=== PATIENT | male | born 1955 | race Caucasian/White ===

== ENCOUNTER 2018-10-12 11:48 | Inpatient (IN) | payer OTHER, MEDICAID ==
[~2018-10-12] VITALS: Ht 167.6 cm; Wt 86.8 kg
[2018-10-12 12:03] VITALS: BP_SYST 125
[2018-10-12] MEDS ORDERED: ALBUTEROL SULFATE 0.083% 2.5 MG/3 ML VIAL.NEB INH ONE (12:15)
[2018-10-12] MEDS ORDERED: LEVOFLOXACIN 500 MG/D5W 100 ML IV ONE ×2 (12:15→16:45)
[2018-10-12] MEDS ORDERED: ACETAMINOPHEN 500 MG TABLET PO ONE (12:45)
[2018-10-12 12:57] LABS: BASOPHILS # (AUTO) 0.2 K/uL (0.0-0.2); BASOPHILS % (AUTO) 0.7 % (0.0-2.0); EOSINOPHILS % (AUTO) 0.1 % (0.0-4.0); HEMATOCRIT 40.9 % (36-54); HEMOGLOBIN 13.2 g/dL (14.0-18.0); LYMPHOCYTES # (AUTO) 6.7 K/uL (1.0-5.5); LYMPHOCYTES % (AUTO) 27.5 % (20.5-51.5); MEAN CORPUSCULAR HEMOGLOBIN 30 pg (27-31); MEAN CORPUSCULAR HGB CONC 32 % (32-36); MEAN CORPUSCULAR VOLUME 92 fL (79.0-98.0); MONOCYTES % (AUTO) 12.5 % (1.7-9.3); NEUTROPHILS # (AUTO) 14.3 K/uL (1.8-7.7); NEUTROPHILS % (AUTO) 59.2 % (40.0-70.0); PLATELET COUNT (AUTO) 266 K/uL (130-430); RED BLOOD CELL COUNT(AUTO) 4.46 MIL/uL (4.2-6.2); RED CELL DISTRIBUTION WIDTH 16.3 % (9.0-15.0); WHITE BLOOD COUNT (AUTO) 24.2 K/uL (4.8-10.8)
[2018-10-12 13:07] LABS: PROTHROMBIN TIME 9.9 SECS (9.5-12.5)
[2018-10-12 13:08] LABS: CREATININE 2.66 mg/dL (0.55-1.30); POTASSIUM 4.1 mmol/L (3.5-5.1)
[2018-10-12 13:13] LABS: ALBUMIN 2.8 g/dL (3.4-4.8); TOTAL BILIRUBIN 0.5 mg/dL (0.0-1.0)
[2018-10-12] MEDS ORDERED: NACL 0.9% 1,000 ML IV ONE (13:30)
[2018-10-12] MEDS ORDERED: ASCO500T20 PO (14:24)
[2018-10-12] MEDS ORDERED: SCOP1PAT17 TD (14:24)
[2018-10-12] MEDS ORDERED: GABA-529 PO (14:24)
[2018-10-12] MEDS ORDERED: THIA100T73 PO (14:24)
[2018-10-12] MEDS ORDERED: DOCU250C71 PO (14:24)
[2018-10-12] MEDS ORDERED: HYDR1LIQ PO (14:24)
[2018-10-12] MEDS ORDERED: LANS15CA15 PO (14:24)
[2018-10-12] MEDS ORDERED: DARB100V IJ (14:24)
[2018-10-12] MEDS ORDERED: FOLI-43 PO (14:24)
[2018-10-12] MEDS ORDERED: MAGN400T10 PO (14:24)
[2018-10-12] MEDS ORDERED: ALPR0.25 PO (14:24)
[2018-10-12] MEDS ORDERED: ZINC220T (14:24)
[2018-10-12] MEDS ORDERED: LIP10 PO (14:24)
[2018-10-12] MEDS ORDERED: IPRA4AER INH (14:24)
[2018-10-12] MEDS ORDERED: HEPA500015 SUBCUT (14:24)
[2018-10-12 15:30] LABS: BILIRUBIN,URINE 1+ (NEGATIVE); CLARITY/URINE CLEAR (CLEAR); COLOR,URINE YELLOW (YELLOW); GLUCOSE,URINE NEGATIVE (NEGATIVE); KETONES,URINE 1+ (NEGATIVE); LEUKOCYTE ESTERASE ,URINE NEGATIVE (NEGATIVE); NITRITE, URINE NEGATIVE (NEGATIVE); PH,URINE 5.5 (5.0-8.0); PROTEIN URINE 2+ (NEGATIVE); UROBILINOGEN,URINE 0.2 (0.2-1.0)
[2018-10-12 15:31] LABS: BLOOD, URINE TRACE (NEGATIVE)
[2018-10-12 15:56] LABS: BACTERIA,URINE FEW /HPF (None Seen); COARSE GRANULAR CASTS,URINE 0-10 /LPF (None Seen); MUCUS,URINE 1+ /LPF (None Seen); RBC,URINE 0-3 /HPF (0-3); URINE AMORPHOUS URATE 2+ /HPF (None Seen); WBC,URINE 0-3 /HPF (0-3)
[2018-10-12 15:59] VITALS: BP_SYST 128
[2018-10-12 16:11] VITALS: BP_SYST 128
[2018-10-12] MEDS: KCL 20 mEq in D5/0.45NS 1000mL 1,000 ML IV SCH (16:20)
[2018-10-12] MEDS ORDERED: ALBUTEROL SULFATE 0.083% 2.5 MG/3 ML VIAL.NEB INH PRN (16:45)
[2018-10-12] MEDS ORDERED: IPRATROPIUM BROM 0.5 MG/2.5 ML VIAL.NEB (ATROVENT) INH PRN (16:45)
[2018-10-12] MEDS ORDERED: ACETAMINOPHEN 325 MG TABLET PO PRN (16:45)
[2018-10-12] MEDS ORDERED: ONDANSETRON HCL 4 MG/2 ML VIAL IVP PRN (17:00)
[2018-10-12] MEDS ORDERED: LevALBUTEROL HCL 1.25 MG/0.5 ML *CONC.* VIAL.NEB (XOPENEX CONC.) INH PRN (17:15)
[2018-10-12] MEDS ORDERED: methylPREDNISolone SOD SUCC/PF 62.5 MG/ML VIAL IVP ONE (17:30)
[2018-10-12] MEDS ORDERED: IPRATROPIUM/ALBUTEROL SULFATE 120 PUFFS/4 GM INH INH SCH (18:00)
[2018-10-12] MEDS ORDERED: PIPERACILLIN/TAZO 2.25G/DEX-IS 50 ML IV SCH (18:00)
[2018-10-12] MEDS: PIPERACILLIN/TAZO 2.25G/DEX-IS 50 ML IV SCH (18:20)
[2018-10-12] MEDS ORDERED: VANCOMYCIN HCL 1,000 MG in NS 250 ML IV SCH (19:00)
[2018-10-12 20:00] VITALS: BP_SYST 104
[2018-10-12] MEDS: LevALBUTEROL HCL 1.25 MG/0.5 ML *CONC.* VIAL.NEB (XOPENEX CONC.) INH SCH (20:13)
[2018-10-12] MEDS: IPRATROPIUM BROM 0.5 MG/2.5 ML VIAL.NEB (ATROVENT) INH SCH (20:14)
[2018-10-12] MEDS: ALPRAZolam 0.25 MG TABLET PO SCH (21:00)
[2018-10-12] MEDS: methylPREDNISolone SOD SUCC/PF 62.5 MG/ML VIAL IVP SCH (21:49)
[2018-10-12] MEDS: HEPARIN SODIUM,PORCINE 5000 UNITS/ML VIAL SUBCUT SCH (21:58)
[2018-10-12 22:58] VITALS: BP_SYST 114
[2018-10-13] MEDS: PIPERACILLIN/TAZO 2.25G/DEX-IS 50 ML IV SCH ×5 (00:13→23:40)
[2018-10-13] MEDS: LevALBUTEROL HCL 1.25 MG/0.5 ML *CONC.* VIAL.NEB (XOPENEX CONC.) INH SCH ×4 (01:26→19:02)
[2018-10-13] MEDS: IPRATROPIUM BROM 0.5 MG/2.5 ML VIAL.NEB (ATROVENT) INH SCH ×4 (01:26→19:02)
[2018-10-13] MEDS: KCL 20 mEq in D5/0.45NS 1000mL 1,000 ML IV SCH (04:21)
[2018-10-13] MEDS: methylPREDNISolone SOD SUCC/PF 62.5 MG/ML VIAL IVP SCH ×3 (05:22→21:19)
[2018-10-13 06:02] LABS: BASOPHILS % (AUTO) 0.2 % (0.0-2.0); EOSINOPHILS % (AUTO) 0.1 % (0.0-4.0); HEMATOCRIT 38.5 % (36-54); HEMOGLOBIN 12.3 g/dL (14.0-18.0); LYMPHOCYTES # (AUTO) 1.8 K/uL (1.0-5.5); MEAN CORPUSCULAR HEMOGLOBIN 29 pg (27-31); MEAN CORPUSCULAR HGB CONC 32 % (32-36); MEAN CORPUSCULAR VOLUME 92 fL (79.0-98.0); MONOCYTES # (AUTO) 0.6 K/uL (0.0-1.0); MONOCYTES % (AUTO) 3.3 % (1.7-9.3); NEUTROPHILS # (AUTO) 14.3 K/uL (1.8-7.7); NEUTROPHILS % (AUTO) 85.4 % (40.0-70.0); PLATELET COUNT (AUTO) 270 K/uL (130-430); RED CELL DISTRIBUTION WIDTH 16.1 % (9.0-15.0); WHITE BLOOD COUNT (AUTO) 16.8 K/uL (4.8-10.8)
[2018-10-13 06:21] LABS: ALBUMIN 2.4 g/dL (3.4-4.8); CALCIUM 9.8 mg/dL (8.4-11.0); CREATININE 2.93 mg/dL (0.55-1.30); POTASSIUM 4.3 mmol/L (3.5-5.1); TOTAL BILIRUBIN 0.4 mg/dL (0.0-1.0)
[2018-10-13] MEDS ORDERED: VANCOMYCIN HCL 1,000 MG in NS 250 ML IV SCH (07:45)
[2018-10-13 08:18] VITALS: BP_SYST 137
[2018-10-13] MEDS ORDERED: ATORVASTATIN 10 MG TABLET PO SCH (09:00)
[2018-10-13] MEDS: ALPRAZolam 0.25 MG TABLET PO SCH ×2 (09:00→21:20)
[2018-10-13] MEDS: HEPARIN SODIUM,PORCINE 5000 UNITS/ML VIAL SUBCUT SCH ×2 (10:09→21:21)
[2018-10-13] MEDS: MAGNESIUM OXIDE 400 MG TABLET PO SCH (11:38)
[2018-10-13] MEDS: PANTOPRAZOLE SODIUM 40 MG TAB PO SCH (11:38)
[2018-10-13] MEDS: FOLIC ACID 1 MG TABLET PO SCH (11:38)
[2018-10-13] MEDS: ASCORBIC ACID 500 MG TABLET PO SCH (11:38)
[2018-10-13] MEDS: GABAPENTIN 100 MG CAPSULE PO SCH (11:39)
[2018-10-13] MEDS: NEPHROVITE, (FOLIC ACID/VITAMIN B COMP W-C 1 TAB) PO SCH (11:39)
[2018-10-13] MEDS: ATORVASTATIN 10 MG TABLET PO SCH (11:39)
[2018-10-13] MEDS ORDERED: traMADol HCL HCL 50 MG TABLET (ULTRAM) PO PRN (12:00)
[2018-10-13 12:44] VITALS: BP_SYST 107
[2018-10-13] MEDS ORDERED: OXYCODONE/ACETAMINOPHEN 5-325 TABLET PO PRN ×2 (14:15→19:00)
[2018-10-13 16:20] VITALS: BP_SYST 109
[2018-10-13] MEDS: LEVOFLOXACIN 250 MG/D5W 50 ML IV SCH (16:59)
[2018-10-13] MEDS ORDERED: EPOETIN ALFA 3,000 UNITS/ML VIAL SUBCUT SCH (17:00)
[2018-10-13] MEDS: OXYCODONE/ACETAMINOPHEN 5-325 TABLET PO PRN (19:12)
[2018-10-13 20:13] VITALS: BP_SYST 112
[2018-10-14 00:50] VITALS: BP_SYST 113
[2018-10-14] MEDS: IPRATROPIUM BROM 0.5 MG/2.5 ML VIAL.NEB (ATROVENT) INH SCH ×4 (00:57→19:20)
[2018-10-14] MEDS: LevALBUTEROL HCL 1.25 MG/0.5 ML *CONC.* VIAL.NEB (XOPENEX CONC.) INH SCH ×4 (00:58→19:20)
[2018-10-14] MEDS: OXYCODONE/ACETAMINOPHEN 5-325 TABLET PO PRN ×5 (01:02→23:08)
[2018-10-14] MEDS: PIPERACILLIN/TAZO 2.25G/DEX-IS 50 ML IV SCH ×4 (05:21→23:11)
[2018-10-14] MEDS: methylPREDNISolone SOD SUCC/PF 62.5 MG/ML VIAL IVP SCH ×3 (05:21→21:04)
[2018-10-14 08:00] VITALS: BP_SYST 102
[2018-10-14] MEDS: MAGNESIUM OXIDE 400 MG TABLET PO SCH (09:04)
[2018-10-14] MEDS: GABAPENTIN 100 MG CAPSULE PO SCH (09:04)
[2018-10-14] MEDS: NEPHROVITE, (FOLIC ACID/VITAMIN B COMP W-C 1 TAB) PO SCH (09:04)
[2018-10-14] MEDS: FOLIC ACID 1 MG TABLET PO SCH (09:04)
[2018-10-14] MEDS: ALPRAZolam 0.25 MG TABLET PO SCH ×2 (09:04→21:04)
[2018-10-14] MEDS: ATORVASTATIN 10 MG TABLET PO SCH (09:04)
[2018-10-14] MEDS: ASCORBIC ACID 500 MG TABLET PO SCH (09:04)
[2018-10-14] MEDS: PANTOPRAZOLE SODIUM 40 MG TAB PO SCH (09:04)
[2018-10-14] MEDS: HEPARIN SODIUM,PORCINE 5000 UNITS/ML VIAL SUBCUT SCH ×2 (09:08→21:03)
[2018-10-14 11:58] VITALS: BP_SYST 115
[2018-10-14 15:00] VITALS: BP_SYST 112
[2018-10-14] MEDS: LEVOFLOXACIN 250 MG/D5W 50 ML IV SCH (16:17)
[2018-10-14 20:00] VITALS: BP_SYST 120
[2018-10-15] VITALS (7 sets, daily range): BP systolic 102–135
[2018-10-15] MEDS: LevALBUTEROL HCL 1.25 MG/0.5 ML *CONC.* VIAL.NEB (XOPENEX CONC.) INH SCH ×4 (01:04→19:50)
[2018-10-15] MEDS: IPRATROPIUM BROM 0.5 MG/2.5 ML VIAL.NEB (ATROVENT) INH SCH ×4 (01:05→19:50)
[2018-10-15] MEDS: PIPERACILLIN/TAZO 2.25G/DEX-IS 50 ML IV SCH ×4 (05:09→23:44)
[2018-10-15] MEDS: methylPREDNISolone SOD SUCC/PF 62.5 MG/ML VIAL IVP SCH ×3 (05:09→20:39)
[2018-10-15 06:31] LABS: BASOPHILS % (AUTO) 0.2 % (0.0-2.0); HEMATOCRIT 36.1 % (36-54); HEMOGLOBIN 11.5 g/dL (14.0-18.0); LYMPHOCYTES # (AUTO) 1.2 K/uL (1.0-5.5); LYMPHOCYTES % (AUTO) 7.3 % (20.5-51.5); MEAN CORPUSCULAR HEMOGLOBIN 29 pg (27-31); MEAN CORPUSCULAR HGB CONC 32 % (32-36); MEAN CORPUSCULAR VOLUME 91 fL (79.0-98.0); MONOCYTES # (AUTO) 0.6 K/uL (0.0-1.0); NEUTROPHILS # (AUTO) 14.2 K/uL (1.8-7.7); NEUTROPHILS % (AUTO) 88.5 % (40.0-70.0); PLATELET COUNT (AUTO) 346 K/uL (130-430); RED BLOOD CELL COUNT(AUTO) 3.96 MIL/uL (4.2-6.2); WHITE BLOOD COUNT (AUTO) 16.1 K/uL (4.8-10.8)
[2018-10-15 06:47] LABS: ALBUMIN 2.4 g/dL (3.4-4.8); CALCIUM 9.7 mg/dL (8.4-11.0); CREATININE 3.2 mg/dL (0.55-1.30); POTASSIUM 3.9 mmol/L (3.5-5.1); TOTAL BILIRUBIN 0.3 mg/dL (0.0-1.0)
[2018-10-15] MEDS: ASCORBIC ACID 500 MG TABLET PO SCH (08:18)
[2018-10-15] MEDS: PANTOPRAZOLE SODIUM 40 MG TAB PO SCH (08:18)
[2018-10-15] MEDS: ATORVASTATIN 10 MG TABLET PO SCH (08:18)
[2018-10-15] MEDS: FOLIC ACID 1 MG TABLET PO SCH (08:18)
[2018-10-15] MEDS: NEPHROVITE, (FOLIC ACID/VITAMIN B COMP W-C 1 TAB) PO SCH (08:18)
[2018-10-15] MEDS: ALPRAZolam 0.25 MG TABLET PO SCH ×2 (08:18→20:38)
[2018-10-15] MEDS: MAGNESIUM OXIDE 400 MG TABLET PO SCH (08:18)
[2018-10-15] MEDS: GABAPENTIN 100 MG CAPSULE PO SCH (08:18)
[2018-10-15] MEDS: OXYCODONE/ACETAMINOPHEN 5-325 TABLET PO PRN ×4 (08:19→23:42)
[2018-10-15] MEDS: HEPARIN SODIUM,PORCINE 5000 UNITS/ML VIAL SUBCUT SCH ×2 (08:20→20:41)
[2018-10-15] MEDS: VANCOMYCIN HCL 750 MG in NS 250 ML IV SCH (08:24)
[2018-10-15] MEDS: LEVOFLOXACIN 250 MG/D5W 50 ML IV SCH (15:39)
[2018-10-16 00:38] VITALS: BP_SYST 133
[2018-10-16] MEDS: LevALBUTEROL HCL 1.25 MG/0.5 ML *CONC.* VIAL.NEB (XOPENEX CONC.) INH SCH ×4 (00:49→19:30)
[2018-10-16] MEDS: IPRATROPIUM BROM 0.5 MG/2.5 ML VIAL.NEB (ATROVENT) INH SCH ×4 (00:50→19:30)
[2018-10-16] MEDS: PIPERACILLIN/TAZO 2.25G/DEX-IS 50 ML IV SCH ×4 (05:16→23:18)
[2018-10-16] MEDS: methylPREDNISolone SOD SUCC/PF 62.5 MG/ML VIAL IVP SCH ×3 (05:16→20:54)
[2018-10-16 06:47] LABS: BASOPHILS % (AUTO) 0.3 % (0.0-2.0); HEMATOCRIT 36.4 % (36-54); HEMOGLOBIN 11.8 g/dL (14.0-18.0); LYMPHOCYTES # (AUTO) 1.1 K/uL (1.0-5.5); LYMPHOCYTES % (AUTO) 9.3 % (20.5-51.5); MEAN CORPUSCULAR HEMOGLOBIN 29 pg (27-31); MEAN CORPUSCULAR HGB CONC 33 % (32-36); MEAN CORPUSCULAR VOLUME 90 fL (79.0-98.0); MONOCYTES # (AUTO) 0.6 K/uL (0.0-1.0); MONOCYTES % (AUTO) 5.5 % (1.7-9.3); NEUTROPHILS # (AUTO) 9.9 K/uL (1.8-7.7); NEUTROPHILS % (AUTO) 84.9 % (40.0-70.0); PLATELET COUNT (AUTO) 376 K/uL (130-430); RED BLOOD CELL COUNT(AUTO) 4.04 MIL/uL (4.2-6.2); RED CELL DISTRIBUTION WIDTH 15.9 % (9.0-15.0)
[2018-10-16 07:08] LABS: WHITE BLOOD COUNT (AUTO) 11.6 K/uL (4.8-10.8)
[2018-10-16 07:32] LABS: CREATININE 3.36 mg/dL (0.55-1.30)
[2018-10-16 07:40] VITALS: BP_SYST 130
[2018-10-16] MEDS: MAGNESIUM OXIDE 400 MG TABLET PO SCH (08:46)
[2018-10-16] MEDS: ATORVASTATIN 10 MG TABLET PO SCH (08:46)
[2018-10-16] MEDS: PANTOPRAZOLE SODIUM 40 MG TAB PO SCH (08:46)
[2018-10-16] MEDS: GABAPENTIN 100 MG CAPSULE PO SCH (08:47)
[2018-10-16] MEDS: NEPHROVITE, (FOLIC ACID/VITAMIN B COMP W-C 1 TAB) PO SCH (08:47)
[2018-10-16] MEDS: ASCORBIC ACID 500 MG TABLET PO SCH (08:47)
[2018-10-16] MEDS: FOLIC ACID 1 MG TABLET PO SCH (08:47)
[2018-10-16] MEDS: ALPRAZolam 0.25 MG TABLET PO SCH ×2 (08:47→20:54)
[2018-10-16] MEDS: OXYCODONE/ACETAMINOPHEN 5-325 TABLET PO PRN ×4 (08:48→23:19)
[2018-10-16] MEDS: HEPARIN SODIUM,PORCINE 5000 UNITS/ML VIAL SUBCUT SCH ×2 (08:50→20:56)
[2018-10-16] MEDS: VANCOMYCIN HCL 750 MG in NS 250 ML IV SCH (08:52)
[2018-10-16 12:25] VITALS: BP_SYST 129
[2018-10-16] MEDS ORDERED: HEPARIN SODIUM,PORCINE 5000 UNITS/ML VIAL IVP ONE (12:45)
[2018-10-16 16:51] VITALS: BP_SYST 128
[2018-10-16] MEDS: LEVOFLOXACIN 250 MG/D5W 50 ML IV SCH (17:18)
[2018-10-16 19:00] VITALS: BP_SYST 132
[2018-10-16 20:00] VITALS: BP_SYST 132
[2018-10-17 00:28] VITALS: BP_SYST 128
[2018-10-17] MEDS: IPRATROPIUM BROM 0.5 MG/2.5 ML VIAL.NEB (ATROVENT) INH SCH ×3 (00:40→13:36)
[2018-10-17] MEDS: LevALBUTEROL HCL 1.25 MG/0.5 ML *CONC.* VIAL.NEB (XOPENEX CONC.) INH SCH ×3 (00:40→13:36)
[2018-10-17] MEDS: PIPERACILLIN/TAZO 2.25G/DEX-IS 50 ML IV SCH ×3 (05:14→17:40)
[2018-10-17] MEDS: methylPREDNISolone SOD SUCC/PF 62.5 MG/ML VIAL IVP SCH ×2 (05:15→13:33)
[2018-10-17] MEDS: OXYCODONE/ACETAMINOPHEN 5-325 TABLET PO PRN ×4 (05:38→17:41)
[2018-10-17 08:05] VITALS: BP_SYST 132
[2018-10-17] MEDS: ASCORBIC ACID 500 MG TABLET PO SCH (09:03)
[2018-10-17] MEDS: ALPRAZolam 0.25 MG TABLET PO SCH (09:03)
[2018-10-17] MEDS: MAGNESIUM OXIDE 400 MG TABLET PO SCH (09:03)
[2018-10-17] MEDS: FOLIC ACID 1 MG TABLET PO SCH (09:03)
[2018-10-17] MEDS: PANTOPRAZOLE SODIUM 40 MG TAB PO SCH (09:03)
[2018-10-17] MEDS: ATORVASTATIN 10 MG TABLET PO SCH (09:03)
[2018-10-17] MEDS: NEPHROVITE, (FOLIC ACID/VITAMIN B COMP W-C 1 TAB) PO SCH (09:03)
[2018-10-17] MEDS: GABAPENTIN 100 MG CAPSULE PO SCH (09:03)
[2018-10-17] MEDS: HEPARIN SODIUM,PORCINE 5000 UNITS/ML VIAL SUBCUT SCH (09:06)
[2018-10-17 12:47] VITALS: BP_SYST 128
[2018-10-17] MEDS: LEVOFLOXACIN 250 MG/D5W 50 ML IV SCH (16:50)
[2018-10-17 16:55] VITALS: BP_SYST 116
[2018-10-17 19:04] VITALS: BP_SYST 116
== END 2018-10-17 19:45 | DRG 871 ==
LOC: SED 11:48 → SMU 13:50 → STU 17:57 → SMU 10-14 15:14
PROVIDERS: ADMIT Family Medicine; ATTEND Family Medicine
PROC: 5A1D70Z Performance of Urinary Filtration, Intermittent, Less than 6 Hours Per Day (ICD-10-PCS; principal; 2018-10-13)
PROC: 5A1D70Z Performance of Urinary Filtration, Intermittent, Less than 6 Hours Per Day (ICD-10-PCS; 2018-10-16)
DX: A41.9 Sepsis, unspecified organism (principal); E43 Unspecified severe protein-calorie malnutrition; J15.6 Pneumonia due to other Gram-negative bacteria; N18.6 End stage renal disease; J96.01 Acute respiratory failure with hypoxia; G93.41 Metabolic encephalopathy; I12.0 Hypertensive chronic kidney disease with stage 5 chronic kidney disease or end stage renal disease; J44.0 Chronic obstructive pulmonary disease with (acute) lower respiratory infection; G82.20 Paraplegia, unspecified; J44.1 Chronic obstructive pulmonary disease with (acute) exacerbation; E78.5 Hyperlipidemia, unspecified; F10.10 Alcohol abuse, uncomplicated; F17.210 Nicotine dependence, cigarettes, uncomplicated; G89.29 Other chronic pain; Z96.653 Presence of artificial knee joint, bilateral; I51.7 Cardiomegaly; Z90.81 Acquired absence of spleen; Z68.30 Body mass index [BMI] 30.0-30.9, adult; Z99.2 Dependence on renal dialysis
CPT/HCPCS: 36415; 36600; 71045; 80048; 80053; 80202-TC; 81000-TC; 82803-TC; 83605; 83880; 84484; 85025; 85610-TC; 87040-TC; 87070-TC; 87081; 87205-TC; 90935; 90937; 93005; 94640; 94660; 94760; 96361; 96365; 97110-GP; 97116-GP; 97530-GP; 99285; G0378; J1644; J1956; J2543; J2930; J3370; J7030; J7050; J7612; J7613